=== PATIENT | female | born 1990 | race Caucasian/White ===

== ENCOUNTER 2025-03-26 05:49 | Day surgery (SDC) | payer BC ==
[2025-03-23 11:14] VITALS: BMI 22.3
[2025-03-23 11:45] LABS: Hematocrit 36.2 % (34.9-44.5); Hemoglobin 12.1 g/dL (12.0-15.5); Mean Corpuscular Hemoglobin 30.0 pg (27.0-33.0); Mean Corpuscular Volume 89.8 fL (81.6-98.3); Platelet Count 253 10x3/uL (150-450); Red Blood Cell (RBC) Count 4.03 10x6/uL (3.90-5.03); White Blood Cell (WBC) Count 9.45 10x3/uL (3.5-10.5)
[2025-03-26] MEDS ORDERED: Ketorolac Tromethamine 30 MG (1 mL) VIAL ONE (06:19)
[2025-03-26] MEDS ORDERED: PROPOFOL 20 ML ONE (06:19)
[2025-03-26] MEDS ORDERED: Silver Nitrate Application 1 EACH ONE (06:25)
[2025-03-26] MEDS ORDERED: Methylergonovine 0.2 MG/ML VIAL ONE (06:25)
[2025-03-26] MEDS ORDERED: Tranexamic Acid 1,000 MG/10 ML VIAL ONE (06:26)
[2025-03-26] MEDS ORDERED: Scopolamine 1 mg/72 hour Patch ONE (06:36)
[2025-03-26] MEDS ORDERED: CEFAZOLIN 2 GM VIAL ONE (06:50)
[2025-03-26] MEDS ORDERED: Oxytocin 10 UNITS/ML VIAL ONE ×2 (07:48→07:49)
[2025-03-26] MEDS ORDERED: CEFAZOLIN 1 GM VIAL ONE (07:49)
== END 2025-03-26 09:35 | disposition home or self-care (01) ==
LOC: CSHSDC 05:49
PROVIDERS: ATTEND Student in an Organized Health Care Education/Training Program
PROC: 10D17ZZ Extraction of Products of Conception, Retained, Via Natural or Artificial Opening (ICD-10-PCS; principal; 2025-03-26)
DX: O02.0 Blighted ovum and nonhydatidiform mole (principal); Z88.0 Allergy status to penicillin; Z90.710 Acquired absence of both cervix and uterus
CPT/HCPCS: 36415; 85027; 86850; 86900; 86901; 88305; 88342; J0690; J1100; J1885; J2210; J2550; J2590; J2704